=== PATIENT | male | born 1965 | race African-American/Black ===

== ENCOUNTER 2025-08-25 09:16 | Inpatient (IN) | payer MEDICARE, MEDICAID ==
[~2025-08-25] VITALS: Ht 180.3 cm; Wt 83.9 kg
[~2025-08-25 09:16] MED LIST: FURO-152 PO; LISI40TA21 PO; NIFE90TA60 PO
[2025-08-25 09:25] VITALS: O2SAT 98
[2025-08-25 12:10] LABS: BASOPHILS % 0.9 % (0.0-2.0); EOSINOPHILS % 0.5 % (0.0-5.0); HEMATOCRIT. 45.2 % (42.0-52.0); HEMOGLOBIN. 15.0 g/dL (14.0-18.0); LYMPHOCYTES % 27.4 % (20.0-50.0); MEAN PLATELET VOLUME 7.7 fl (7.4-10.4); MONOCYTES % 8.4 % (2.0-8.0); NEUTROPHILS % 62.8 % (40.0-76.0); PLATELET 220 x1000/uL (130-400); RED BLOOD CELL COUNT 5.12 mill/uL (4.7-6.1); RED CELL DISTRIBUTION WIDTH 14.5 % (11.6-14.6)
[2025-08-25 12:17] LABS: CREATININE 1.4 mg/dL (0.6-1.3); UREA NITROGEN BLOOD 9 mg/dL (9-23)
[2025-08-25 12:18] LABS: ETHANOL BLOOD 76 mg/dL (<10)
[2025-08-25 12:22] LABS: TROPONIN I HIGH SENSITIVITY 184 ng/L (3.0-53)
[2025-08-25] MEDS: CARVEDILOL 12.5MG TABLET PO ONE (12:23)
[2025-08-25] MEDS: BACITRACIN ZINC OINT UDPKT TOP ONE (12:24)
[2025-08-25] MEDS ORDERED: ENOXAPARIN 80MG/0.8ML SYR SUBCUT NR (12:30)
[2025-08-25] MEDS: ASPIRIN 81MG TABLET PO NR (12:48)
[2025-08-25] MEDS: ENOXAPARIN 80MG/0.8ML SYR SUBCUT NR (13:01)
[2025-08-25] MEDS: NIFEDIPINE XL 90MG TAB PO ONE (13:37)
[2025-08-25] MEDS: KETOROLAC 30MG/ML VIAL IV ONE (13:37)
[2025-08-25] MEDS: HYDRALAZINE 20MG/ML VIAL IV NR (14:29)
[2025-08-25] MEDS ORDERED: ACETAMINOPHEN 325MG TABLET PO PRN (14:30)
[2025-08-25 15:25] LABS: *AMPHETAMINES SCREEN URINE NEGATIVE (NEGATIVE); *BARBITURATES SCREEN URINE NEGATIVE (NEGATIVE); *BENZODIAZEPINES SCREEN URINE NEGATIVE (NEGATIVE); *COCAINE SCREEN URINE PRESUMPTIVE POSITIVE (NEGATIVE); METHADONE URINE SCREEN NEGATIVE (NEGATIVE); OPIATES URINE SCREEN NEGATIVE (NEGATIVE)
[2025-08-25 15:26] LABS: CANNABINOID URINE SCREEN PRESUMPTIVE POSITIVE (NEGATIVE); ECSTASY MDMA SCREEN URINE NEGATIVE (NEGATIVE); PHENCYCLIDINE URINE SCREEN NEGATIVE (NEGATIVE)
[2025-08-25] MEDS: CLONIDINE 0.1MG TABLET PO PRN (15:29)
[2025-08-25] MEDS ORDERED: LORAZEPAM 1MG TABLET PO PRN (15:30)
[2025-08-25] MEDS: FAMOTIDINE 20MG/2ML VIAL IV SCH (15:59)
[2025-08-25 16:25] VITALS: BP 160/102; PULSE 82; RESP 18; TEMP 35.9
[2025-08-25 16:27] VITALS: BP 160/102; PULSE 82; RESP 18; TEMP 35.9176
[2025-08-25 16:29] LABS: PROTEIN TOTAL 7.5 g/dL (6.0-8.3)
[2025-08-25 16:31] LABS: ASPARTATE AMINOTRANSFERASE 41 IU/L (<34); BILIRUBIN DIRECT 0.2 mg/dL (<=3.0); BILIRUBIN TOTAL 0.6 mg/dL (0.1-1.0)
[2025-08-25] MEDS: MVI, ADULT NO.1 10 ML, FOLIC ACID 1 MG, THIAMINE HCL 100 MG in SODIUM CHLORIDE 0.9% 1,0... IV ONE (17:04)
[2025-08-25] MEDS: CEFAZOLIN 1000MG PREMIX 50 ML IV SCH (17:04)
[2025-08-25 20:00] VITALS: BP 135/87; PULSE 75; RESP 18; TEMP 36.6; O2SAT 98
[2025-08-25] MEDS: ATORVASTATIN CALCIUM 40MG TABLET PO SCH (20:59)
[2025-08-26] VITALS: BP 127/74; PULSE 74; RESP 18; TEMP 36.7; O2SAT 99
[2025-08-26] MEDS: ACETAMINOPHEN 325MG TABLET PO PRN (01:06)
[2025-08-26 01:45] LABS: CREATINE KINASE MB FRACTION 8.7 ng/mL (0.5-3.6)
[2025-08-26 02:07] LABS: TROPONIN I HIGH SENSITIVITY 202 ng/L (3.0-53)
[2025-08-26 04:00] VITALS: BP 146/88; PULSE 77; RESP 18; TEMP 36.7; O2SAT 18
[2025-08-26 08:00] VITALS: BP 140/84; PULSE 74; RESP 18; TEMP 36.7; O2SAT 98
[2025-08-26 08:40] LABS: BASOPHILS % 0.6 % (0.0-2.0); EOSINOPHILS % 0.9 % (0.0-5.0); HEMATOCRIT. 50.6 % (42.0-52.0); HEMOGLOBIN. 16.7 g/dL (14.0-18.0); LYMPHOCYTES % 27.8 % (20.0-50.0); MEAN PLATELET VOLUME 8.8 fl (7.4-10.4); MONOCYTES % 10.1 % (2.0-8.0); NEUTROPHILS % 60.6 % (40.0-76.0); PLATELET 208 x1000/uL (130-400); RED BLOOD CELL COUNT 5.74 mill/uL (4.7-6.1); RED CELL DISTRIBUTION WIDTH 14.5 % (11.6-14.6)
[2025-08-26 08:45] LABS: CREATINE KINASE MB FRACTION 6.7 ng/mL (0.5-3.6)
[2025-08-26 08:48] LABS: CREATININE 1.2 mg/dL (0.6-1.3); TRIGLYCERIDE 148 mg/dL (0-150); UREA NITROGEN BLOOD 9 mg/dL (9-23)
[2025-08-26 08:49] LABS: LDL CHOLESTEROL 92 mg/dL (5-100); TROPONIN I HIGH SENSITIVITY 219 ng/L (3.0-53)
[2025-08-26 08:50] LABS: T4 FREE 1.34 ng/dL (0.89-1.76)
[2025-08-26] MEDS: MULTIVITAMINS,THER W-MINERALS TABLET PO SCH (09:07)
[2025-08-26] MEDS: NIFEDIPINE XL 90MG TAB PO SCH (09:08)
[2025-08-26] MEDS: FOLIC ACID 1MG TABLET PO SCH (09:08)
[2025-08-26] MEDS: LISINOPRIL 40MG TABLET PO SCH (09:08)
[2025-08-26] MEDS: THIAMINE HCL 100MG TABLET PO SCH (09:08)
[2025-08-26] MEDS: ASPIRIN 81MG TABLET PO SCH (09:11)
[2025-08-26] MEDS: LACTATED RINGERS 1,000 ML IV ONE (11:50)
[2025-08-26] MEDS ORDERED: LORAZEPAM 2MG/ML UD SYRINGE IV PRN (15:15)
[2025-08-26 16:00] VITALS: BP 140/91; PULSE 81; RESP 18; TEMP 36.5; O2SAT 98
[2025-08-26 20:00] VITALS: BP 153/99; RESP 17; TEMP 36.3; O2SAT 96
[2025-08-26] MEDS: OLANZAPINE 5MG TABLET PO SCH (20:18)
[2025-08-26] MEDS ORDERED: GABAPENTIN 100MG CAPSULE PO PRN ×2 (21:30)
[2025-08-26] MEDS: GABAPENTIN 100MG CAPSULE PO PRN (21:36)
[2025-08-26] MEDS: LORAZEPAM 1MG TABLET PO PRN (22:42)
[2025-08-27] VITALS: BP 146/92; PULSE 76; RESP 18; TEMP 36.8; O2SAT 97
[2025-08-27 02:53] LABS: CREATINE KINASE MB FRACTION 4.0 ng/mL (0.5-3.6)
[2025-08-27 02:56] LABS: TROPONIN I HIGH SENSITIVITY 143 ng/L (3.0-53)
[2025-08-27 04:00] VITALS: BP 136/75; PULSE 65; RESP 15; TEMP 36.4; O2SAT 98
[2025-08-27 08:00] VITALS: BP 140/82; PULSE 70; RESP 18; TEMP 36.7; O2SAT 98
[2025-08-27] MEDS ORDERED: OLAN5TAB74 PO (10:55)
[2025-08-27] MEDS ORDERED: CEPH500C2 MT (10:55)
[2025-08-27] MEDS ORDERED: THIA100T72 PO (10:55)
[2025-08-27] MEDS ORDERED: FOLI-43 PO (10:55)
[2025-08-27] MEDS ORDERED: LISI40TA21 PO (10:55)
[2025-08-27] MEDS ORDERED: ASPI-1160 PO (10:55)
[2025-08-27] MEDS ORDERED: LIP40 PO (10:55)
[2025-08-27] MEDS ORDERED: NIFE90TA60 PO (10:55)
== END 2025-08-27 10:15 | disposition home or self-care (01) | DRG 913 ==
LOC: ER 09:16 → 8WST 12:56 → EDBEDREQTM 13:12 → EDBEDREQ 13:12 → ENRESERV 13:30
PROVIDERS: ADMIT Internal Medicine; ATTEND Internal Medicine
DX: S61.421A Laceration with foreign body of right hand, initial encounter (principal); I21.A1 Myocardial infarction type 2; F25.0 Schizoaffective disorder, bipolar type; N17.9 Acute kidney failure, unspecified; F10.129 Alcohol abuse with intoxication, unspecified; N18.9 Chronic kidney disease, unspecified; F32.A Depression, unspecified; F14.10 Cocaine abuse, uncomplicated; I12.9 Hypertensive chronic kidney disease with stage 1 through stage 4 chronic kidney disease, or unspecified chronic kidney disease; I16.0 Hypertensive urgency; M54.30 Sciatica, unspecified side; G47.9 Sleep disorder, unspecified; F17.210 Nicotine dependence, cigarettes, uncomplicated; Y04.0XXA Assault by unarmed brawl or fight, initial encounter; Y90.3 Blood alcohol level of 60-79 mg/100 ml; Z79.899 Other long term (current) drug therapy; Z91.199 Patient's noncompliance with other medical treatment and regimen due to unspecified reason; Y93.89 Activity, other specified; Y92.89 Other specified places as the place of occurrence of the external cause; Y99.8 Other external cause status
CPT/HCPCS: 36415; 71045; 73120; 80048; 80061; 80076; 80305; 80320; 82550; 82553; 84439; 84443; 84481; 84484; 85025; 93005; 99291; J0360; J0690; J1308; J1650; J1885; J3411; J3490; J7030; G0480